=== PATIENT | female | born 1935 | race African-American/Black ===

== ENCOUNTER 2017-01-27 11:22 | Emergency (ER) | payer OTHER ==
[~2017-01-27] VITALS: Ht 162.6 cm; Wt 53.7 kg
[~2017-01-27 11:22] MED LIST: AMLODIPINE BESYL5 MG PO; APRESOLINE100 MG PO; ATORVASTATIN CA80 MG PO; Aspirin E.C. PO; CEFUROXIME250 MG PO; Colace PO; DICYCLOMINE HCL10 MG PO; GABAPENTIN100 MG PO; HYDRALAZINE HCL50 MG PO; HYDROCHLOROTHIA25 MG PO; Humibid LA,Mucinex PO; Hydrodiuril,Oretic,E PO; LANTUS 10100 UNITS/ SC; LANTUS 10100 UNITS/ SQ; LANTUS 3 M100 UNITS1 SC; LEVEMIR FL100 UNIT/1 SC; LISINOPRIL10 MG PO; LISINOPRIL20 MG PO; LO-DOSE ASPIRIN81 M1 PO; Lantus 3 ml Solostar SC; MAG-AL PLUS SUS30 ML PO; METOPROLOL SUC100 MG PO; METOPROLOL SUCC50 MG PO; NEURONTIN100 MG PO; NEURONTIN300 MG PO; NORVASC10 MG PO; NOVOLIN R100 UNIT/1 IM; NOVOLOG 10100 UNITS/ SC; NOVOLOG PE100 UNITS/ SC; Neurontin PO; NovoLOG, HumaLOG SC; PANTOPRAZOLE SO40 MG PO; PLAVIX75 MG PO; PREMARIN0.625 MG PO; PREMARIN0.9 MG PO; PRILOSEC20 MG PO; PRINIVIL10 MG PO; PRINIVIL20 MG PO; SIMVASTATIN40 M1 PO; ST. JOSEPH ASPI81 MG PO; Senokot,Sennagen PO; TOPROL XL100 MG PO; TOPROL XL50 MG PO; VITAMIN D35000 UNIT PO; Zestril,Prinivil PO; [UNRECOGNIZED DRUG - CODE] PO
[2017-01-27] MEDS ORDERED: ATARAX,VISTARIL50 MG PO (12:24)
[2017-01-27 12:48] VITALS: BP 214/109
== END 2017-01-27 12:49 | disposition home or self-care (01) ==
LOC: EME 11:22
DX: L30.9 Dermatitis, unspecified (principal); E11.9 Type 2 diabetes mellitus without complications; I10 Essential (primary) hypertension; Z79.4 Long term (current) use of insulin
CPT/HCPCS: 99281; 99283

== ENCOUNTER 2018-02-23 18:16 | Inpatient (IN) | payer OTHER ==
[~2018-02-23] VITALS: Ht 162.6 cm; Wt 50.1 kg
[~2018-02-23 18:16] MED LIST changes: +ATARAX,VISTARIL50 MG PO
[2018-02-23 19:18] LABS: BASOPHIL (%) 0.2 % (0-1); EOSINOPHIL (%) 0.2 % (0-5); HEMATOCRIT 34.3 % (36.0-46.0); HEMOGLOBIN 11.6 G/DL (11.9-15.5); IMMATURE GRANULOCYTE (%) 0.3 % (0.0-0.7); LYMPHOCYTE (%) 8.1 % (15-42); LYMPHOCYTE COUNT 0.5 K/uL (1.0-2.8); MCH 28.7 PG (29.0-34.0); MCHC 33.8 G/DL (30.0-36.0); MCV 84.9 FL (83-99); MONOCYTE (%) 4.5 % (3-12); MONOCYTE COUNT 0.3 K/uL (0-0.8); NEUTROPHIL (%) 86.7 % (45-76); NEUTROPHIL COUNT 5.6 K/uL (1.8-6.4); PLATELET COUNT 294 K/uL (156-360); RBC DIS.WIDTH-CV 15.5 % (11.8-14.6); RBC DIS.WIDTH-SD 48.3 % (39-53); RED BLOOD COUNT 4.04 M/uL (3.80-5.20); WHITE BLOOD COUNT 6.4 K/uL (4.1-10.2)
[2018-02-23 19:26] LABS: APPEARANCE CLOUDY ((CLEAR)); BILIRUBIN NEGATIVE; BLOOD NEGATIVE; COLOR AMBER ((YELLOW)); GLUCOSE (STRIP) 50; KETONES 5; LEUKOCYTES NEGATIVE; NITRITE NEGATIVE; PROTEIN (STRIP) 30; SPECIFIC GRAVITY 1.027 (1.000-1.030)
[2018-02-23 19:27] LABS: CHLORIDE 104 mEq/L (99-109); POTASSIUM 3.4 mEq/L (3.7-5.4); PTT 27.8 SEC (25-37); SODIUM 142 mEq/L (136-147)
[2018-02-23 19:29] LABS: GLUCOSE 136 mg/dL (70-99)
[2018-02-23 19:33] LABS: CREATININE 0.9 mg/dL (0.6-1.3); GFR ESTIMATE (CALCULATED) > 59 mL/min/
[2018-02-23 19:34] LABS: UREA NITROGEN (BUN) 15 mg/dL (9-23)
[2018-02-23 19:36] LABS: LIPASE 9 U/L (1.0-51.0)
[2018-02-23 19:39] LABS: TROP-I INTERPRETATION NEGATIVE; TROPONIN-I < 0.01 ng/mL (0.0-0.30)
[2018-02-23 19:48] LABS: BACTERIA NONE SEEN /HPF; EPITHELIAL CELLS RARE /HPF; MUCUS 4+ /LPF; RED BLOOD CELLS NONE SEEN /HPF (0-5); UCUL ADDED? NO; WHITE BLOOD CELLS NONE SEEN /HPF (0-5)
[2018-02-23 20:41] LABS: HDL CHOLESTEROL 73 MG/DL (Desirable>=50); LDL CHOLESTEROL 166 mg/dL (Desirable<100); NON-HDL CHOLESTEROL 183 mg/dL (Desirable<160); TOTAL CHOLESTEROL 256 mg/dL (Desirable<200); TRIGLYCERIDES 86 MG/DL (Normal: <150)
[2018-02-24 00:35] VITALS: BP 193/79
[2018-02-24 00:48] LABS: HEMATOCRIT 31.6 % (36.0-46.0); HEMOGLOBIN 10.6 G/DL (11.9-15.5); MCH 28.4 PG (29.0-34.0); MCHC 33.5 G/DL (30.0-36.0); MCV 84.7 FL (83-99); PLATELET COUNT 273 K/uL (156-360); RBC DIS.WIDTH-CV 15.3 % (11.8-14.6); RBC DIS.WIDTH-SD 47.3 % (39-53); RED BLOOD COUNT 3.73 M/uL (3.80-5.20); WHITE BLOOD COUNT 5.3 K/uL (4.1-10.2)
[2018-02-24 01:06] LABS: TROP-I INTERPRETATION NEGATIVE; TROPONIN-I 0.01 ng/mL (0.0-0.30)
[2018-02-24 04:19] VITALS: BP 162/71
[2018-02-24 07:19] VITALS: BP 166/73
[2018-02-24 12:56] LABS: HEMOGLOBIN A1c (GLYCOHEMOGLOB) 10.7 % (Below 5.7)
[2018-02-24 14:32] LABS: CHLORIDE 104 mEq/L (99-109); SODIUM 139 mEq/L (136-147)
[2018-02-24 14:35] LABS: GLUCOSE 655 mg/dL (70-99); POTASSIUM 4.2 mEq/L (3.7-5.4)
[2018-02-24 14:38] LABS: CREATININE 1.4 mg/dL (0.6-1.3); GFR ESTIMATE (CALCULATED) 47 mL/min/
[2018-02-24 14:39] LABS: UREA NITROGEN (BUN) 24 mg/dL (9-23)
[2018-02-24 15:58] VITALS: BP 182/72
[2018-02-24 17:34] LABS: CHLORIDE 105 MEQ/L (99-109); CREATININE 1.2 MG/DL (0.6-1.3); GFR ESTIMATE (CALCULATED) 56 mL/min/; GLUCOSE 374 mg/dL (70-99); SODIUM 140 MEQ/L (136-147); UREA NITROGEN (BUN) 22 mg/dL (9-23)
[2018-02-24 19:19] VITALS: BP 144/86
[2018-02-24 23:39] VITALS: BP 162/70
[2018-02-25 03:35] VITALS: BP 154/66
[2018-02-25 09:35] LABS: HEMATOCRIT 32.5 % (36.0-46.0); HEMOGLOBIN 10.8 G/DL (11.9-15.5); MCH 28.1 PG (29.0-34.0); MCHC 33.2 G/DL (30.0-36.0); MCV 84.6 FL (83-99); PLATELET COUNT 292 K/uL (156-360); RBC DIS.WIDTH-CV 15.6 % (11.8-14.6); RBC DIS.WIDTH-SD 48.2 % (39-53); RED BLOOD COUNT 3.84 M/uL (3.80-5.20); WHITE BLOOD COUNT 4.9 K/uL (4.1-10.2)
[2018-02-25 09:42] LABS: CHLORIDE 105 MEQ/L (99-109); SODIUM 142 MEQ/L (136-147)
[2018-02-25 10:35] LABS: GFR ESTIMATE (CALCULATED) > 59 mL/min/; UREA NITROGEN (BUN) 24 mg/dL (9-23)
[2018-02-25 10:39] LABS: GLUCOSE 120 mg/dL (70-99)
[2018-02-25 11:34] VITALS: BP 184/80
[2018-02-25 15:47] VITALS: BP 176/75
[2018-02-25 20:00] VITALS: BP 173/74
[2018-02-26] VITALS (7 sets, daily range): BP systolic 152–198; BP diastolic 68–82
[2018-02-27 03:33] VITALS: BP 136/70
[2018-02-27 07:47] VITALS: BP 133/60
[2018-02-27 12:06] VITALS: BP 158/70
== END 2018-02-27 13:56 | DRG 65 ==
LOC: EME 18:16 → 5SOUTH 22:44 → EDOF 22:44 → ENRESERV 22:48 → 5SOUTH 02-24 00:02 → EDOF 02-24 00:02 → 5SOUTH 02-27 13:56
PROVIDERS: Emergency Medicine; Hospitalist; Physician Assistant; Physician Assistant Medical
DX: I63.8 Other cerebral infarction (principal); G81.91 Hemiplegia, unspecified affecting right dominant side; E78.5 Hyperlipidemia, unspecified; I10 Essential (primary) hypertension; R47.01 Aphasia; E87.6 Hypokalemia; N17.9 Acute kidney failure, unspecified; E87.2 Acidosis; E11.22 Type 2 diabetes mellitus with diabetic chronic kidney disease; K21.9 Gastro-esophageal reflux disease without esophagitis; E11.649 Type 2 diabetes mellitus with hypoglycemia without coma; Z90.710 Acquired absence of both cervix and uterus; Z68.1 Body mass index [BMI] 19.9 or less, adult; Z79.4 Long term (current) use of insulin
CPT/HCPCS: 70450; 70551; 71046; 80048; 80048 91; 80061; 81003; 82948; 83036; 83690; 84484; 84999; 85025; 85027; 85610; 85730; 92507 GN; 92523 GN; 92610 GN; 93005; 93306; 93880; 99281; 99285; J1644; J1815; J7040

== ENCOUNTER 2018-03-04 19:40 | Inpatient (IN) | payer OTHER ==
[~2018-03-04] VITALS: Ht 167.6 cm; Wt 46.8 kg
[2018-03-04 20:15] LABS: BASOPHIL (%) 0.2 % (0-1); EOSINOPHIL (%) 0 % (0-5); HEMATOCRIT 36.2 % (36.0-46.0); HEMOGLOBIN 12.2 G/DL (11.9-15.5); IMMATURE GRANULOCYTE (%) 0.4 % (0.0-0.7); LYMPHOCYTE (%) 4.3 % (15-42); LYMPHOCYTE COUNT 0.4 K/uL (1.0-2.8); MCH 28.4 PG (29.0-34.0); MCHC 33.7 G/DL (30.0-36.0); MCV 84.4 FL (83-99); MONOCYTE COUNT 0.2 K/uL (0-0.8); NEUTROPHIL (%) 93.1 % (45-76); NEUTROPHIL COUNT 7.9 K/uL (1.8-6.4); PLATELET COUNT 532 K/uL (156-360); RBC DIS.WIDTH-CV 15.9 % (11.8-14.6); RBC DIS.WIDTH-SD 49.4 % (39-53); RED BLOOD COUNT 4.29 M/uL (3.80-5.20); WHITE BLOOD COUNT 8.5 K/uL (4.1-10.2)
[2018-03-04 20:16] LABS: CARBON DIOXIDE (BICARBONATE) 20.1 MEQ/L (20-31)
[2018-03-04 20:24] LABS: INTER. NORMALIZED RATIO 0.9
[2018-03-04 20:25] LABS: ALBUMIN 3.9 g/dL (3.2-4.8)
[2018-03-04 20:26] LABS: CHLORIDE 101 mEq/L (99-109); POTASSIUM 4.3 mEq/L (3.7-5.4); SODIUM 140 mEq/L (136-147)
[2018-03-04 20:27] LABS: PTT 28.9 SEC (25-37)
[2018-03-04 20:28] LABS: TOTAL PROTEIN 7.2 g/dL (6.4-8.3)
[2018-03-04 20:30] LABS: TOTAL BILIRUBIN 0.4 mg/dL (0.0-1.0)
[2018-03-04 20:31] LABS: ALKALINE PHOSPHATASE 115 IU/L (3-129)
[2018-03-04 20:33] LABS: AST (GOT) 14 IU/L (2-34); DIRECT BILIRUBIN 0.2 mg/dL (0.0-0.3); UREA NITROGEN (BUN) 36 mg/dL (9-23)
[2018-03-04 20:35] LABS: ALT (GPT) 18 IU/L (3-49); GFR ESTIMATE (CALCULATED) 31 mL/min/; GLUCOSE 717 mg/dL (70-99)
[2018-03-04 20:41] LABS: TROP-I INTERPRETATION NEGATIVE; TROPONIN-I 0.01 ng/mL (0.0-0.30)
[2018-03-04 21:16] LABS: APPEARANCE CLEAR ((CLEAR)); BILIRUBIN NEGATIVE; BLOOD NEGATIVE; COLOR STRAW ((YELLOW)); GLUCOSE (STRIP) >=500; KETONES 20; LEUKOCYTES NEGATIVE; NITRITE NEGATIVE; PROTEIN (STRIP) NEGATIVE; SPECIFIC GRAVITY 1.024 (1.000-1.030); UCUL ADDED? NO; UROBILINOGEN 0.2 MG/DL (0.2-1.0)
[2018-03-04] MEDS ORDERED: BASAGLAR K100 UNIT/1 SC (21:57)
[2018-03-04] MEDS ORDERED: DEBROX15 ML BOTH EARS (22:01)
[2018-03-04] MEDS ORDERED: CLARITIN,ALAVAR10 MG PO (22:03)
[2018-03-04] MEDS ORDERED: ERGOCALCIF50000 UNIT PO (22:06)
[2018-03-04] MEDS ORDERED: DULCOLAX10 MG PR (22:07)
[2018-03-04] MEDS ORDERED: MILK OF MAGN PO (22:08)
[2018-03-04 23:30] VITALS: BP 179/87
[2018-03-05] VITALS (21 sets, daily range): BP systolic 98–200; BP diastolic 51–83
[2018-03-05 00:20] LABS: CHLORIDE 106 mEq/L (99-109); POTASSIUM 3.9 mEq/L (3.7-5.4); SODIUM 143 mEq/L (136-147)
[2018-03-05 00:25] LABS: PHOSPHORUS 4.4 mg/dL (2.5-4.9)
[2018-03-05 00:26] LABS: CREATININE 1.6 mg/dL (0.6-1.3); GFR ESTIMATE (CALCULATED) 40 mL/min/; UREA NITROGEN (BUN) 31 mg/dL (9-23)
[2018-03-05 00:29] LABS: GLUCOSE 422 mg/dL (70-99)
[2018-03-05 04:45] LABS: CHLORIDE 109 mEq/L (99-109); SODIUM 147 mEq/L (136-147)
[2018-03-05 04:47] LABS: GLUCOSE 285 mg/dL (70-99)
[2018-03-05 04:50] LABS: PHOSPHORUS 3.7 mg/dL (2.5-4.9)
[2018-03-05 04:51] LABS: CREATININE 1.3 mg/dL (0.6-1.3); GFR ESTIMATE (CALCULATED) 51 mL/min/
[2018-03-05 04:52] LABS: UREA NITROGEN (BUN) 29 mg/dL (9-23)
[2018-03-05 08:49] LABS: CHLORIDE 108 MEQ/L (99-109); CREATININE 1.1 MG/DL (0.6-1.3); GFR ESTIMATE (CALCULATED) > 59 mL/min/; PHOSPHORUS 3.5 mg/dL (2.5-4.9); POTASSIUM 3.9 MEQ/L (3.7-5.4); SODIUM 146 MEQ/L (136-147); UREA NITROGEN (BUN) 25 mg/dL (9-23)
[2018-03-05 08:51] LABS: GLUCOSE 134 mg/dL (70-99)
[2018-03-05 13:00] LABS: CHLORIDE 109 mEq/L (99-109); POTASSIUM 3.8 mEq/L (3.7-5.4); SODIUM 146 mEq/L (136-147)
[2018-03-05 13:02] LABS: GLUCOSE 110 mg/dL (70-99)
[2018-03-05 13:06] LABS: CREATININE 1.1 mg/dL (0.6-1.3); GFR ESTIMATE (CALCULATED) > 59 mL/min/; PHOSPHORUS 3.3 mg/dL (2.5-4.9)
[2018-03-05 13:07] LABS: UREA NITROGEN (BUN) 25 mg/dL (9-23)
[2018-03-05 16:44] LABS: CHLORIDE 110 mEq/L (99-109); POTASSIUM 3.9 mEq/L (3.7-5.4); SODIUM 144 mEq/L (136-147)
[2018-03-05 16:46] LABS: GLUCOSE 136 mg/dL (70-99)
[2018-03-05 16:49] LABS: PHOSPHORUS 3.1 mg/dL (2.5-4.9)
[2018-03-05 16:50] LABS: GFR ESTIMATE (CALCULATED) > 59 mL/min/; UREA NITROGEN (BUN) 24 mg/dL (9-23)
[2018-03-05 20:38] LABS: CHLORIDE 108 mEq/L (99-109); POTASSIUM 3.9 mEq/L (3.7-5.4); SODIUM 144 mEq/L (136-147)
[2018-03-05 20:40] LABS: GLUCOSE 185 mg/dL (70-99)
[2018-03-05 20:43] LABS: PHOSPHORUS 2.5 mg/dL (2.5-4.9)
[2018-03-05 20:44] LABS: CREATININE 1.1 mg/dL (0.6-1.3); GFR ESTIMATE (CALCULATED) > 59 mL/min/
[2018-03-05 20:45] LABS: UREA NITROGEN (BUN) 22 mg/dL (9-23)
[2018-03-06] VITALS (17 sets, daily range): BP systolic 148–189; BP diastolic 58–98
[2018-03-06 06:28] LABS: CHLORIDE 106 MEQ/L (99-109); CREATININE 0.9 MG/DL (0.6-1.3); GFR ESTIMATE (CALCULATED) > 59 mL/min/; PHOSPHORUS 2.5 mg/dL (2.5-4.9); POTASSIUM 3.2 MEQ/L (3.7-5.4); SODIUM 141 MEQ/L (136-147); UREA NITROGEN (BUN) 19 mg/dL (9-23)
[2018-03-06 06:37] LABS: GLUCOSE 117 mg/dL (70-99)
[2018-03-07 03:45] VITALS: BP 172/77
[2018-03-07 06:18] LABS: HEMATOCRIT 29.6 % (36.0-46.0); MCH 27.9 PG (29.0-34.0); MCHC 33.1 G/DL (30.0-36.0); MCV 84.3 FL (83-99); PLATELET COUNT 383 K/uL (156-360); RBC DIS.WIDTH-CV 15.5 % (11.8-14.6); RBC DIS.WIDTH-SD 47.3 % (39-53); RED BLOOD COUNT 3.51 M/uL (3.80-5.20); WHITE BLOOD COUNT 4.3 K/uL (4.1-10.2)
[2018-03-07 06:29] LABS: HEMOGLOBIN 9.8 G/DL (11.9-15.5)
[2018-03-07 07:03] LABS: CHLORIDE 108 MEQ/L (99-109); CREATININE 0.8 MG/DL (0.6-1.3); GFR ESTIMATE (CALCULATED) > 59 mL/min/; POTASSIUM 3.6 MEQ/L (3.7-5.4); SODIUM 143 MEQ/L (136-147); UREA NITROGEN (BUN) 9 mg/dL (9-23)
[2018-03-07 07:08] LABS: GLUCOSE 42 mg/dL (70-99)
[2018-03-07 07:25] VITALS: BP 190/80
[2018-03-07 11:21] VITALS: BP 158/68
[2018-03-07 15:12] VITALS: BP 163/72
[2018-03-07 20:30] VITALS: BP 154/67
[2018-03-07 23:06] VITALS: BP 168/74
[2018-03-08 03:48] VITALS: BP 140/62
[2018-03-08 06:23] LABS: HEMATOCRIT 27.1 % (36.0-46.0); HEMOGLOBIN 8.9 G/DL (11.9-15.5); MCH 27.6 PG (29.0-34.0); MCHC 32.8 G/DL (30.0-36.0); MCV 83.9 FL (83-99); PLATELET COUNT 361 K/uL (156-360); RBC DIS.WIDTH-CV 15.6 % (11.8-14.6); RBC DIS.WIDTH-SD 47.7 % (39-53); RED BLOOD COUNT 3.23 M/uL (3.80-5.20); WHITE BLOOD COUNT 3.6 K/uL (4.1-10.2)
[2018-03-08 06:47] LABS: CHLORIDE 109 MEQ/L (99-109); CREATININE 0.7 MG/DL (0.6-1.3); GFR ESTIMATE (CALCULATED) > 59 mL/min/; GLUCOSE 68 mg/dL (70-99); POTASSIUM 3.4 MEQ/L (3.7-5.4); SODIUM 142 MEQ/L (136-147); UREA NITROGEN (BUN) 7 mg/dL (9-23)
[2018-03-09 07:05] VITALS: BP 191/88
[2018-03-09 08:31] LABS: BASOPHIL (%) 0.4 % (0-1); EOSINOPHIL (%) 0.4 % (0-5); HEMATOCRIT 30.2 % (36.0-46.0); HEMOGLOBIN 10.4 G/DL (11.9-15.5); IMMATURE GRANULOCYTE (%) 0.2 % (0.0-0.7); LYMPHOCYTE (%) 12.9 % (15-42); LYMPHOCYTE COUNT 0.6 K/uL (1.0-2.8); MCH 28.6 PG (29.0-34.0); MCHC 34.4 G/DL (30.0-36.0); MONOCYTE (%) 4.2 % (3-12); MONOCYTE COUNT 0.2 K/uL (0-0.8); NEUTROPHIL (%) 81.9 % (45-76); NEUTROPHIL COUNT 3.7 K/uL (1.8-6.4); PLATELET COUNT 373 K/uL (156-360); RBC DIS.WIDTH-CV 15.3 % (11.8-14.6); RBC DIS.WIDTH-SD 46.8 % (39-53); RED BLOOD COUNT 3.64 M/uL (3.80-5.20); WHITE BLOOD COUNT 4.5 K/uL (4.1-10.2)
[2018-03-09 08:42] LABS: CHLORIDE 103 mEq/L (99-109); POTASSIUM 3.6 mEq/L (3.7-5.4); SODIUM 136 mEq/L (136-147)
[2018-03-09 08:48] LABS: GFR ESTIMATE (CALCULATED) 56 mL/min/
[2018-03-09 08:49] LABS: UREA NITROGEN (BUN) 14 mg/dL (9-23)
[2018-03-09 08:51] LABS: CREATININE 1.2 mg/dL (0.6-1.3); GLUCOSE 612 mg/dL (70-99)
[2018-03-10] MEDS ORDERED: BISACODYL10 MG/30 M PR (20:56)
== END 2018-03-09 18:10 | DRG 637 ==
LOC: EME → EDBD 19:40 → 4WEST 22:04 → EDOF 22:04 → 2EAST 22:04 → ENRESERV 22:05 → 4WEST 23:20 → ENRESERV 03-06 12:22 → 2EAST 03-06 15:23
PROVIDERS: Emergency Medicine; Family Medicine; Surgery
DX: E11.10 Type 2 diabetes mellitus with ketoacidosis without coma (principal); I63.9 Cerebral infarction, unspecified; F03.90 Unspecified dementia, unspecified severity, without behavioral disturbance, psychotic disturbance, mood disturbance, and anxiety; I69.351 Hemiplegia and hemiparesis following cerebral infarction affecting right dominant side; I12.9 Hypertensive chronic kidney disease with stage 1 through stage 4 chronic kidney disease, or unspecified chronic kidney disease; N18.3 Chronic kidney disease, stage 3 (moderate); N17.9 Acute kidney failure, unspecified; I25.10 Atherosclerotic heart disease of native coronary artery without angina pectoris; E78.5 Hyperlipidemia, unspecified; Z95.5 Presence of coronary angioplasty implant and graft; K21.9 Gastro-esophageal reflux disease without esophagitis; Z87.891 Personal history of nicotine dependence; E87.6 Hypokalemia; E11.22 Type 2 diabetes mellitus with diabetic chronic kidney disease; I48.2 Chronic atrial fibrillation; N31.9 Neuromuscular dysfunction of bladder, unspecified; R64 Cachexia; Z79.4 Long term (current) use of insulin; Z91.14 Patient's other noncompliance with medication regimen
CPT/HCPCS: 71045; 80048; 80048 91; 80076; 81003; 82010; 82272; 82803; 82948; 83880; 84100; 84484; 85025; 85027; 85610; 85730; 87040; 87086; 87641; 92507 GN; 92523 GN; 92526 GN; 92610 GN; 93005; 99281; 99285; J0360; J0456; J0696; J1644; J1815; J3480; J7030; J7050

== ENCOUNTER 2018-03-10 15:49 | Inpatient (IN) | payer OTHER ==
[~2018-03-10] VITALS: Ht 167.6 cm; Wt 56.6 kg
[~2018-03-10 15:49] MED LIST changes: +BASAGLAR K100 UNIT/1 SC; +CLARITIN,ALAVAR10 MG PO; +DEBROX15 ML BOTH EARS; +DULCOLAX10 MG PR; +ERGOCALCIF50000 UNIT PO; +MILK OF MAGN PO
[2018-03-10 16:16] LABS: HEMATOCRIT 34.1 % (36.0-46.0); HEMOGLOBIN 11.5 G/DL (11.9-15.5); MCH 28.6 PG (29.0-34.0); MCHC 33.7 G/DL (30.0-36.0); MCV 84.8 FL (83-99); PLATELET COUNT 473 K/uL (156-360); RBC DIS.WIDTH-CV 15.9 % (11.8-14.6); RBC DIS.WIDTH-SD 49.7 % (39-53); RED BLOOD COUNT 4.02 M/uL (3.80-5.20); WHITE BLOOD COUNT 8.7 K/uL (4.1-10.2)
[2018-03-10 16:27] LABS: CHLORIDE 100 mEq/L (99-109); SODIUM 136 mEq/L (136-147)
[2018-03-10 16:28] LABS: POTASSIUM 4.5 mEq/L (3.7-5.4)
[2018-03-10 16:32] LABS: CREATININE 1.5 mg/dL (0.6-1.3); GFR ESTIMATE (CALCULATED) 43 mL/min/
[2018-03-10 16:34] LABS: GLUCOSE 732 mg/dL (70-99)
[2018-03-10 16:37] LABS: UREA NITROGEN (BUN) 26 mg/dL (9-23)
[2018-03-10 16:38] LABS: TROP-I INTERPRETATION NEGATIVE; TROPONIN-I < 0.01 ng/mL (0.0-0.30)
[2018-03-10 16:53] LABS: APPEARANCE CLEAR ((CLEAR)); BILIRUBIN NEGATIVE; BLOOD NEGATIVE; COLOR STRAW ((YELLOW)); GLUCOSE (STRIP) >=500; KETONES 20; LEUKOCYTES NEGATIVE; NITRITE NEGATIVE; PROTEIN (STRIP) NEGATIVE; SPECIFIC GRAVITY 1.025 (1.000-1.030); UROBILINOGEN 0.2 MG/DL (0.2-1.0)
[2018-03-10 17:23] LABS: CARBON DIOXIDE (BICARBONATE) 19.4 MEQ/L (20-31)
[2018-03-10 20:16] LABS: CHLORIDE 104 mEq/L (99-109); POTASSIUM 4.5 mEq/L (3.7-5.4); SODIUM 138 mEq/L (136-147)
[2018-03-10 20:17] LABS: GLUCOSE 664 mg/dL (70-99)
[2018-03-10 20:21] LABS: CREATININE 1.4 mg/dL (0.6-1.3); GFR ESTIMATE (CALCULATED) 47 mL/min/
[2018-03-10 20:22] LABS: UREA NITROGEN (BUN) 26 mg/dL (9-23)
[2018-03-10] MEDS ORDERED: BISACODYL10 MG/30 M PR (20:56)
[2018-03-10 22:28] VITALS: BP 138/54
[2018-03-10 23:00] VITALS: BP 144/78
[2018-03-11] VITALS (21 sets, daily range): BP systolic 136–177; BP diastolic 49–82
[2018-03-11 01:10] LABS: CHLORIDE 107 mEq/L (99-109); POTASSIUM 3.8 mEq/L (3.7-5.4); SODIUM 141 mEq/L (136-147)
[2018-03-11 01:16] LABS: CREATININE 1.3 mg/dL (0.6-1.3); GFR ESTIMATE (CALCULATED) 51 mL/min/
[2018-03-11 01:17] LABS: UREA NITROGEN (BUN) 26 mg/dL (9-23)
[2018-03-11 01:42] LABS: GLUCOSE 401 mg/dL (70-99); PHOSPHORUS 3.7 mg/dL (2.5-4.9)
[2018-03-11 05:11] LABS: CHLORIDE 114 mEq/L (99-109); POTASSIUM 3.6 mEq/L (3.7-5.4); SODIUM 145 mEq/L (136-147)
[2018-03-11 05:14] LABS: GLUCOSE 172 mg/dL (70-99)
[2018-03-11 05:17] LABS: GFR ESTIMATE (CALCULATED) > 59 mL/min/
[2018-03-11 05:18] LABS: UREA NITROGEN (BUN) 24 mg/dL (9-23)
[2018-03-11 08:54] LABS: CHLORIDE 113 mEq/L (99-109); POTASSIUM 3.3 mEq/L (3.7-5.4); SODIUM 145 mEq/L (136-147)
[2018-03-11 08:59] LABS: GFR ESTIMATE (CALCULATED) > 59 mL/min/; PHOSPHORUS 3.1 mg/dL (2.5-4.9)
[2018-03-11 09:00] LABS: UREA NITROGEN (BUN) 23 mg/dL (9-23)
[2018-03-11 09:03] LABS: GLUCOSE 119 mg/dL (70-99)
[2018-03-11 09:59] LABS: HEMOGLOBIN A1c (GLYCOHEMOGLOB) 11.1 % (Below 5.7)
[2018-03-11 12:48] LABS: CHLORIDE 111 MEQ/L (99-109); POTASSIUM 3.4 MEQ/L (3.7-5.4); SODIUM 146 MEQ/L (136-147)
[2018-03-11 12:54] LABS: CREATININE 0.9 MG/DL (0.6-1.3); GFR ESTIMATE (CALCULATED) > 59 mL/min/; GLUCOSE 158 mg/dL (70-99); PHOSPHORUS 3.3 mg/dL (2.5-4.9); UREA NITROGEN (BUN) 22 mg/dL (9-23)
[2018-03-11 15:50] LABS: CHLORIDE 110 mEq/L (99-109); POTASSIUM 3.5 mEq/L (3.7-5.4); SODIUM 144 mEq/L (136-147)
[2018-03-11 15:51] LABS: GLUCOSE 155 mg/dL (70-99)
[2018-03-11 15:55] LABS: GFR ESTIMATE (CALCULATED) > 59 mL/min/; PHOSPHORUS 3.1 mg/dL (2.5-4.9)
[2018-03-11 15:56] LABS: UREA NITROGEN (BUN) 21 mg/dL (9-23)
[2018-03-11 21:07] LABS: CHLORIDE 111 mEq/L (99-109); POTASSIUM 3.7 mEq/L (3.7-5.4); SODIUM 142 mEq/L (136-147)
[2018-03-11 21:09] LABS: GLUCOSE 150 mg/dL (70-99)
[2018-03-11 21:13] LABS: CREATININE 0.9 mg/dL (0.6-1.3); GFR ESTIMATE (CALCULATED) > 59 mL/min/; PHOSPHORUS 2.7 mg/dL (2.5-4.9)
[2018-03-11 21:14] LABS: UREA NITROGEN (BUN) 19 mg/dL (9-23)
[2018-03-11 21:52] LABS: APPEARANCE CLEAR ((CLEAR)); BILIRUBIN NEGATIVE; BLOOD SMALL; COLOR YELLOW ((YELLOW)); GLUCOSE (STRIP) >=500; KETONES 20; LEUKOCYTES NEGATIVE; NITRITE NEGATIVE; PROTEIN (STRIP) NEGATIVE; SPECIFIC GRAVITY 1.023 (1.000-1.030); UROBILINOGEN 0.2 MG/DL (0.2-1.0)
[2018-03-11 21:57] LABS: BACTERIA NONE SEEN /HPF; EPITHELIAL CELLS RARE /HPF; MUCUS TRACE /LPF; UCUL ADDED? NO; WHITE BLOOD CELLS 0-5 /HPF (0-5)
[2018-03-12] VITALS (23 sets, daily range): BP systolic 142–192; BP diastolic 52–92
[2018-03-12 00:51] LABS: CHLORIDE 110 mEq/L (99-109); POTASSIUM 3.1 mEq/L (3.7-5.4); SODIUM 139 mEq/L (136-147)
[2018-03-12 00:53] LABS: GLUCOSE 148 mg/dL (70-99)
[2018-03-12 00:56] LABS: CREATININE 0.8 mg/dL (0.6-1.3); GFR ESTIMATE (CALCULATED) > 59 mL/min/; PHOSPHORUS 2.4 mg/dL (2.5-4.9)
[2018-03-12 00:57] LABS: UREA NITROGEN (BUN) 17 mg/dL (9-23)
[2018-03-12 06:28] LABS: CHLORIDE 107 MEQ/L (99-109); CREATININE 0.8 MG/DL (0.6-1.3); GFR ESTIMATE (CALCULATED) > 59 mL/min/; SODIUM 141 MEQ/L (136-147); UREA NITROGEN (BUN) 17 mg/dL (9-23)
[2018-03-12 06:38] LABS: GLUCOSE 293 mg/dL (70-99); POTASSIUM 3.8 MEQ/L (3.7-5.4)
[2018-03-13 06:09] LABS: CHLORIDE 106 MEQ/L (99-109); CREATININE 0.9 MG/DL (0.6-1.3); GFR ESTIMATE (CALCULATED) > 59 mL/min/; POTASSIUM 3.8 MEQ/L (3.7-5.4); SODIUM 139 MEQ/L (136-147); UREA NITROGEN (BUN) 14 mg/dL (9-23)
[2018-03-13 06:21] LABS: GLUCOSE 122 mg/dL (70-99)
[2018-03-13 06:55] VITALS: BP 156/69
[2018-03-13 07:49] LABS: PHOSPHORUS 2.7 mg/dL (2.5-4.9)
[2018-03-13 11:25] VITALS: BP 168/74
[2018-03-13 15:10] VITALS: BP 182/75
[2018-03-13 23:45] VITALS: BP 178/80
[2018-03-14 03:24] LABS: CHLORIDE 105 MEQ/L (99-109); CREATININE 0.8 MG/DL (0.6-1.3); GFR ESTIMATE (CALCULATED) > 59 mL/min/; POTASSIUM 3.9 MEQ/L (3.7-5.4); SODIUM 138 MEQ/L (136-147); UREA NITROGEN (BUN) 11 mg/dL (9-23)
[2018-03-14 03:38] LABS: GLUCOSE 90 mg/dL (70-99); PHOSPHORUS 5.5 mg/dL (2.5-4.9)
[2018-03-14 11:10] VITALS: BP 106/61
[2018-03-14 13:18] LABS: GLUCOSE 395 mg/dL (70-99)
[2018-03-14 15:05] VITALS: BP 121/59
[2018-03-14 17:37] VITALS: BP 120/57
[2018-03-15 00:20] VITALS: BP 147/77
[2018-03-15 01:25] LABS: GLUCOSE 131 mg/dL (70-99)
[2018-03-15 06:42] LABS: CHLORIDE 108 MEQ/L (99-109); CREATININE 0.7 MG/DL (0.6-1.3); GFR ESTIMATE (CALCULATED) > 59 mL/min/; PHOSPHORUS 3.6 mg/dL (2.5-4.9); POTASSIUM 3.3 MEQ/L (3.7-5.4); SODIUM 144 MEQ/L (136-147); UREA NITROGEN (BUN) 7 mg/dL (9-23)
[2018-03-15 06:49] LABS: GLUCOSE 73 mg/dL (70-99)
[2018-03-15 07:18] VITALS: BP 157/72
[2018-03-15 14:55] VITALS: BP 165/72
[2018-03-15 18:00] VITALS: BP 186/77
[2018-03-15 22:51] VITALS: BP 94/45
[2018-03-16 05:23] VITALS: BP 172/72
[2018-03-16 05:57] LABS: CHLORIDE 108 MEQ/L (99-109); CREATININE 0.8 MG/DL (0.6-1.3); GFR ESTIMATE (CALCULATED) > 59 mL/min/; GLUCOSE 70 mg/dL (70-99); POTASSIUM 3.5 MEQ/L (3.7-5.4); SODIUM 144 MEQ/L (136-147); UREA NITROGEN (BUN) 8 mg/dL (9-23)
[2018-03-16 06:50] VITALS: BP 127/58
[2018-03-16 12:20] VITALS: BP 86/51
[2018-03-16 15:25] VITALS: BP 150/67
[2018-03-16 21:07] VITALS: BP 152/67
[2018-03-16 22:39] VITALS: BP 127/69
[2018-03-17 06:16] LABS: CHLORIDE 109 MEQ/L (99-109); CREATININE 0.9 MG/DL (0.6-1.3); GFR ESTIMATE (CALCULATED) > 59 mL/min/; GLUCOSE 66 mg/dL (70-99); PHOSPHORUS 3.1 mg/dL (2.5-4.9); POTASSIUM 3.6 MEQ/L (3.7-5.4); SODIUM 144 MEQ/L (136-147); UREA NITROGEN (BUN) 10 mg/dL (9-23)
[2018-03-17 07:07] LABS: HEMATOCRIT 24.4 % (36.0-46.0); MCH 28.3 PG (29.0-34.0); MCHC 33.2 G/DL (30.0-36.0); MCV 85.3 FL (83-99); PLATELET COUNT 370 K/uL (156-360); RBC DIS.WIDTH-CV 16.5 % (11.8-14.6); RBC DIS.WIDTH-SD 51.2 % (39-53); WHITE BLOOD COUNT 3.7 K/uL (4.1-10.2)
[2018-03-17 07:10] LABS: HEMOGLOBIN 8.1 G/DL (11.9-15.5); RED BLOOD COUNT 2.86 M/uL (3.80-5.20)
[2018-03-17 08:45] VITALS: BP 134/75
[2018-03-17 12:19] VITALS: BP 179/76
[2018-03-17 15:55] VITALS: BP 179/75
[2018-03-17 18:16] VITALS: BP 174/95
[2018-03-17 23:50] VITALS: BP 176/76
[2018-03-18 03:26] LABS: CHLORIDE 109 mEq/L (99-109); POTASSIUM 3.5 mEq/L (3.7-5.4); SODIUM 142 mEq/L (136-147)
[2018-03-18 03:28] LABS: GLUCOSE 93 mg/dL (70-99)
[2018-03-18 03:31] LABS: CREATININE 0.8 mg/dL (0.6-1.3); GFR ESTIMATE (CALCULATED) > 59 mL/min/
[2018-03-18 03:32] LABS: UREA NITROGEN (BUN) 10 mg/dL (9-23)
[2018-03-18 06:50] VITALS: BP 173/72
[2018-03-18 15:20] VITALS: BP 176/78
== END 2018-03-18 17:29 | DRG 638 ==
LOC: EME 15:49 → 4WEST 20:54 → EDOF 20:54 → ENRESERV 20:55 → 4WEST 22:23 → ENRESERV 03-12 19:48 → 5EAST 03-12 22:20 → ENRESERV 03-13 16:39 → 5EAST 03-13 19:08
PROVIDERS: Emergency Medicine; Family Medicine; Internal Medicine; Nurse Practitioner Family
DX: E11.10 Type 2 diabetes mellitus with ketoacidosis without coma (principal); R29.6 Repeated falls; R62.7 Adult failure to thrive; Z68.1 Body mass index [BMI] 19.9 or less, adult; Z51.5 Encounter for palliative care; L89.301 Pressure ulcer of unspecified buttock, stage 1; I12.9 Hypertensive chronic kidney disease with stage 1 through stage 4 chronic kidney disease, or unspecified chronic kidney disease; N18.2 Chronic kidney disease, stage 2 (mild); E11.22 Type 2 diabetes mellitus with diabetic chronic kidney disease; R13.10 Dysphagia, unspecified; I48.0 Paroxysmal atrial fibrillation; I48.2 Chronic atrial fibrillation; Z91.14 Patient's other noncompliance with medication regimen; I25.10 Atherosclerotic heart disease of native coronary artery without angina pectoris; E78.5 Hyperlipidemia, unspecified; F03.90 Unspecified dementia, unspecified severity, without behavioral disturbance, psychotic disturbance, mood disturbance, and anxiety; K21.9 Gastro-esophageal reflux disease without esophagitis; R45.1 Restlessness and agitation; Z91.81 History of falling; Z79.02 Long term (current) use of antithrombotics/antiplatelets; Z79.4 Long term (current) use of insulin; Z86.73 Personal history of transient ischemic attack (TIA), and cerebral infarction without residual deficits; Z87.891 Personal history of nicotine dependence
CPT/HCPCS: 70450; 80048; 80048 91; 81003; 82010; 82803; 82948; 83036; 83735; 84100; 84484; 84999; 85027; 87641; 94799; 99281; 99285; J0360; J1630; J1650; J1815; J2060; J3480; J7030; J7050; J7120

== ENCOUNTER 2018-03-20 13:38 | Inpatient (IN) | payer OTHER ==
[~2018-03-20] VITALS: Ht 172.7 cm; Wt 55.6 kg
[~2018-03-20 13:38] MED LIST changes: +BISACODYL10 MG/30 M PR
[2018-03-20 15:01] LABS: CARBON DIOXIDE (BICARBONATE) 10.1 MEQ/L (20-31)
[2018-03-20 15:03] LABS: BASOPHIL (%) 0.2 % (0-1); EOSINOPHIL (%) 0 % (0-5); HEMATOCRIT 31.2 % (36.0-46.0); IMMATURE GRANULOCYTE (%) 0.4 % (0.0-0.7); LYMPHOCYTE (%) 3.2 % (15-42); LYMPHOCYTE COUNT 0.4 K/uL (1.0-2.8); MCH 29.4 PG (29.0-34.0); MCHC 32.4 G/DL (30.0-36.0); MONOCYTE (%) 2.6 % (3-12); MONOCYTE COUNT 0.3 K/uL (0-0.8); NEUTROPHIL (%) 93.6 % (45-76); NEUTROPHIL COUNT 11.9 K/uL (1.8-6.4); RBC DIS.WIDTH-CV 17.9 % (11.8-14.6); RBC DIS.WIDTH-SD 59.2 % (39-53); RED BLOOD COUNT 3.43 M/uL (3.80-5.20); WHITE BLOOD COUNT 12.7 K/uL (4.1-10.2)
[2018-03-20 15:05] LABS: HEMOGLOBIN 10.1 G/DL (11.9-15.5)
[2018-03-20 15:06] LABS: PLATELET COUNT 482 K/uL (156-360)
[2018-03-20 15:09] LABS: APPEARANCE SL.HAZY ((CLEAR)); BILIRUBIN NEGATIVE; BLOOD LARGE; COLOR YELLOW ((YELLOW)); GLUCOSE (STRIP) >=500; KETONES 80; LEUKOCYTES MODERATE; NITRITE NEGATIVE; PROTEIN (STRIP) 30; SPECIFIC GRAVITY 1.023 (1.000-1.030); UROBILINOGEN 0.2 MG/DL (0.2-1.0)
[2018-03-20 15:09] LABS: ALBUMIN 3.2 g/dL (3.2-4.8); CHLORIDE 100 mEq/L (99-109); SODIUM 140 mEq/L (136-147)
[2018-03-20 15:10] LABS: MAGNESIUM 2.5 mg/dL (1.3-2.7)
[2018-03-20 15:14] LABS: TOTAL BILIRUBIN 0.3 mg/dL (0.0-1.0)
[2018-03-20 15:15] LABS: ALKALINE PHOSPHATASE 92 IU/L (3-129)
[2018-03-20 15:17] LABS: AST (GOT) 25 IU/L (2-34)
[2018-03-20 15:19] LABS: ALT (GPT) 27 IU/L (3-49)
[2018-03-20 15:21] LABS: TROP-I INTERPRETATION NEGATIVE; TROPONIN-I < 0.01 ng/mL (0.0-0.30)
[2018-03-20 15:21] LABS: CREATININE 1.5 mg/dL (0.6-1.3); GFR ESTIMATE (CALCULATED) 43 mL/min/; GLUCOSE 666 mg/dL (70-99); POTASSIUM 4.9 mEq/L (3.7-5.4); UREA NITROGEN (BUN) 26 mg/dL (9-23)
[2018-03-20 15:40] LABS: BACTERIA NONE SEEN /HPF; EPITHELIAL CELLS RARE /HPF; MUCUS NONE SEEN /LPF; UCUL ADDED? YES
[2018-03-20 16:13] LABS: THYROTROPIN (TSH) 0.55 MIU/L (0.4-5.5)
[2018-03-20] MEDS ORDERED: LOW DOSE ASPIRI81 M1 PO (17:12)
[2018-03-20] MEDS ORDERED: AMLODIPINE BESYL5 MG PO (17:12)
[2018-03-20] MEDS ORDERED: PLAVIX75 MG PO (17:13)
[2018-03-20] MEDS ORDERED: NEURONTIN100 MG PO (17:13)
[2018-03-20] MEDS ORDERED: TOPROL XL100 MG PO (17:14)
[2018-03-20] MEDS ORDERED: HYDROCHLOROTHIA25 MG PO (17:14)
[2018-03-20] MEDS ORDERED: PRILOSEC20 MG PO (17:14)
[2018-03-20] MEDS ORDERED: ZESTRIL10 MG PO (17:15)
[2018-03-20] MEDS ORDERED: NOVOLOG 10100 UNITS/ SC (17:16)
[2018-03-20] MEDS ORDERED: APRESOLINE100 MG PO (17:17)
[2018-03-20 20:24] LABS: CHLORIDE 109 mEq/L (99-109); POTASSIUM 4.1 mEq/L (3.7-5.4); SODIUM 146 mEq/L (136-147)
[2018-03-20 20:30] LABS: CREATININE 1.3 mg/dL (0.6-1.3); GFR ESTIMATE (CALCULATED) 51 mL/min/
[2018-03-20 20:31] LABS: UREA NITROGEN (BUN) 28 mg/dL (9-23)
[2018-03-20 20:52] LABS: GLUCOSE 499 mg/dL (70-99)
[2018-03-20 21:01] VITALS: BP 119/56
[2018-03-21 00:53] LABS: CHLORIDE 109 mEq/L (99-109); POTASSIUM 4.5 mEq/L (3.7-5.4); SODIUM 144 mEq/L (136-147)
[2018-03-21 00:58] LABS: PHOSPHORUS 4.7 mg/dL (2.5-4.9)
[2018-03-21 00:59] LABS: CREATININE 1.5 mg/dL (0.6-1.3); GFR ESTIMATE (CALCULATED) 43 mL/min/
[2018-03-21 01:00] LABS: UREA NITROGEN (BUN) 24 mg/dL (9-23)
[2018-03-21 01:01] LABS: GLUCOSE 611 mg/dL (70-99)
[2018-03-21 06:31] LABS: CHLORIDE 109 MEQ/L (99-109); CREATININE 1.2 MG/DL (0.6-1.3); GFR ESTIMATE (CALCULATED) 56 mL/min/; POTASSIUM 4.2 MEQ/L (3.7-5.4); SODIUM 147 MEQ/L (136-147); UREA NITROGEN (BUN) 23 mg/dL (9-23)
[2018-03-21 06:44] LABS: GLUCOSE 422 mg/dL (70-99)
[2018-03-21 07:07] LABS: HEMATOCRIT 25.3 % (36.0-46.0); HEMOGLOBIN 8.3 G/DL (11.9-15.5); MCH 28.5 PG (29.0-34.0); MCHC 32.8 G/DL (30.0-36.0); PLATELET COUNT 424 K/uL (156-360); RBC DIS.WIDTH-CV 17.9 % (11.8-14.6); RED BLOOD COUNT 2.91 M/uL (3.80-5.20)
[2018-03-21 07:20] VITALS: BP 172/74
[2018-03-21 07:23] LABS: MCV 86.9 FL (83-99)
[2018-03-21 15:07] VITALS: BP 188/78
[2018-03-21 18:24] VITALS: BP 139/63
[2018-03-22 07:22] VITALS: BP 195/76
[2018-03-22 14:55] VITALS: BP 183/77
[2018-03-22 22:30] VITALS: BP 98/58
[2018-03-23 07:27] VITALS: BP 100/60
== END 2018-03-23 17:41 | disposition hospice, home (50) | DRG 377 ==
LOC: EME 13:38 → EDOF 19:14 → 5EAST 19:14 → ENRESERV 19:22 → 5EAST 20:44
PROVIDERS: Emergency Medicine; Family Medicine
DX: K92.0 Hematemesis (principal); E11.10 Type 2 diabetes mellitus with ketoacidosis without coma; E11.65 Type 2 diabetes mellitus with hyperglycemia; F03.90 Unspecified dementia, unspecified severity, without behavioral disturbance, psychotic disturbance, mood disturbance, and anxiety; K21.9 Gastro-esophageal reflux disease without esophagitis; Z91.14 Patient's other noncompliance with medication regimen; R62.7 Adult failure to thrive; I48.0 Paroxysmal atrial fibrillation; I12.9 Hypertensive chronic kidney disease with stage 1 through stage 4 chronic kidney disease, or unspecified chronic kidney disease; N18.3 Chronic kidney disease, stage 3 (moderate); Z86.73 Personal history of transient ischemic attack (TIA), and cerebral infarction without residual deficits; E78.5 Hyperlipidemia, unspecified; I25.10 Atherosclerotic heart disease of native coronary artery without angina pectoris; E11.22 Type 2 diabetes mellitus with diabetic chronic kidney disease; Z66 Do not resuscitate; R64 Cachexia; Z79.4 Long term (current) use of insulin; Z51.5 Encounter for palliative care; Z87.891 Personal history of nicotine dependence
CPT/HCPCS: 70450; 71045; 80048; 80048 91; 80053; 81003; 82010; 82803; 82948; 83605; 83735; 84100; 84443; 84484; 85025; 85027; 87086; 87106; 93005; 99281; 99285; J1200; J1815; J2405; J7030; J7050